=== PATIENT | female | born 1950 | race Caucasian/White ===

== ENCOUNTER 2017-08-01 16:31 | Inpatient (IN) | payer MEDICARE, OTHER ==
[~2017-08-01] VITALS: Ht 170.2 cm; Wt 84.8 kg
[2017-08-01 17:52] LABS: BASO % 1 % (0-3); EOS % 0 % (0-3); HEMATOCRIT 46.1 % (36.0-47.0); HEMOGLOBIN 15.5 g/dL (12.0-15.5); LYMPH # 1.5 x10^3/uL (1.0-4.8); LYMPH % 21 % (24-48); MEAN CORPUSCULAR HEMOGLOBIN 29 pg (25-35); MEAN CORPUSCULAR HGB CONC 34 g/dL (31-37); MEAN CORPUSCULAR VOLUME 87 fL (79-100); MONO # 0.7 x10^3/uL (0.0-1.1); MONO % 9 % (0-9); NEUT % 69 % (31-73); PLATELET COUNT 158 x10^3/uL (140-400); RED BLOOD COUNT 5.33 x10^6/uL (3.50-5.40); RED CELL DISTRIBUTION WIDTH 14.6 % (11.5-14.5); WHITE BLOOD COUNT 7.2 x10^3/uL (4.0-11.0)
[2017-08-01 17:58] LABS: CALCIUM 8.6 mg/dL (8.5-10.1); CREATININE 0.5 mg/dL (0.6-1.0); GFR 123.8; POTASSIUM 3.4 mmol/L (3.5-5.1)
[2017-08-01] MEDS ORDERED: IV NORMAL SALINE 1,000ML 1,000 ML IV ONE (18:00)
--- NOTE | 2017-08-01 19:16 | EKG ---
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
[2017-08-01] MEDS ORDERED: IOHEXOL 300 MG/ML 75 ML VIAL. IV ONE (19:30)
[2017-08-01] MEDS ORDERED: ENOXAPARIN ** NOTE DOSE ** SYRINGE SQ SCH (19:30)
[2017-08-01] MEDS ORDERED: AZITHROMYCIN 250 MG TABLET. PO ONE ×2 (19:30)
[2017-08-01] MEDS ORDERED: methylPREDNISolone SOD SUCC PF 125 MG/2 ML VIAL. IV ONE (19:30)
[2017-08-01 19:39] LABS: BGAS PH 7.4 (7.35-7.45)
[2017-08-01] MEDS: cefTRIAXone IV Push 1 GM VIAL. IVP SCH (20:31)
[2017-08-01] MEDS: IPRATRPIUM/ALBUTEROL 0.5/2.5MG 3 ML NEBU. NEB SCH (20:33)
--- NOTE | 2017-08-01 20:46 | RAD ---
Examination: CT angiography chest HISTORY: History of hypoxia, dyspnea COMPARISON: None available TECHNIQUE: Axial CT angiography images were performed with IV contrast. Coronal and sagittal 3-D MIP reformats performed Exposure: One or more of the following individualized dose reduction techniques were utilized for this examination: 1. Automated exposure control 2. Adjustment of the mA and/or kV according to patient size 3. Use of iterative reconstruction technique FINDINGS: The visualized thyroid gland grossly appears unremarkable. The central airways are patent. Carotid artery calcifications identified. The heart size grossly appears unremarkable. The caliber of the aorta grossly appears unremarkable. No evidence of filling defect identified in the main pulmonary arterial trunk and right and left main pulmonary arteries and the visualized lobar, segmental branches of the pulmonary arteries. Diffuse bilateral lung emphysematous changes. No evidence of pleural effusion or pneumothorax. Mild right lung base patchy airspace opacities likely atelectasis or infiltrates. The visualized liver, spleen, adrenals grossly appears unremarkable. Partially visualized minimal bilateral perinephric fat stranding. Moderate degenerative changes thoracic spine. IMPRESSION: 1. No evidence of pulmonary embolism. 2. Coronary artery calcifications. 3. Diffuse lung emphysematous changes. 4. Right lung base airspace opacities likely atelectasis or infiltrates. Electronically signed by: León Tamayo MD (08/01/2017 8:43 PM) [facility]
--- NOTE | 2017-08-01 21:10 | ED.ADGEN ---
Past History Past Medical History: COPD, GERD, Hypertension Past Surgical History: Cholecystectomy, Other Additional Smoking Information: states she hasn't been able to smoke for the past few days and is going to try to quit Alcohol Use: Rarely Drug Use: None Adult General Chief Complaint Chief Complaint ".. I ve been so short of breath... I may be got the flu or something.. I got fevers.. and just feel rotten..." HPI HPI Patient is a 67 year old female who presents with above hx and complaints of dyspnea, pharyngitis, myalgia, fever, chills, arthralgia, and fatigue. Patient does have a history of COPD. Patient reports periodic episodes of bronchitis. Patient normally follows with Janet Min for care. Pt. seen in clinic Haley Min for her dyspnea. Patient noted to have sats at 80% on room air. Patient is tachycardic and obviously dyspneic. Patient denies any travel or specific ill contacts. She denies any history of immunosuppression. Patient has never been oxygen dependent. Patient does not have home oxygen at this time. Patient reports coughing episodes to the point of almost passing out. Patient still smokes. Pt. mother this past week in [facility]. Pt. reports being under a lot of emotional distress. Review of Systems Review of Systems Constitutional: Hx. fever or chills [] Eyes: Denies change in visual acuity, redness, or eye pain [] HENT: Hx. of nasal congestion and sore throat [] Respiratory: Hx of cough and shortness of breath [] Cardiovascular: No additional information not addressed in HPI [] Tachycardia. GI: Denies abdominal pain, nausea, vomiting, bloody stools or diarrhea [] : Denies dysuria or hematuria [] Musculoskeletal: Denies back pain or joint pain [] Integument: Denies rash or skin lesions [] Neurologic: Denies headache, focal weakness or sensory changes [] Endocrine: Denies polyuria or polydipsia [] All other systems were reviewed and found to be within normal limits, except as documented in this note. Family History Family History Noncontributory Current Medications Current Medications Current Medications Medications (Trade) Dose Ordered Sig/Axel Start Time Stop Time Status Last Admin Dose Admin Sodium Chloride 1,000 ml @ 1,000 mls/hr 1X ONCE 08/01/17 18:00 08/01/17 18:59 DC 08/01/17 17:48 1,000 MLS/HR Allergies Allergies See nursing for home meds, patient has had problems with Keflex in the past Physical Exam Physical Exam Constitutional: in acute distress, non-toxic appearance. [] HENT: Normocephalic, atraumatic, bilateral external ears normal, oropharynx moist, injected pharynx no oral exudates, nose rhinorrhea Eyes: PERRLA, EOMI, conjunctiva normal, no discharge. [] Neck: Normal range of motion, no tenderness, supple, no stridor. [] Cardiovascular : tachycardia Heart rate regular rhythm, no murmur [] Lungs & Thorax: Bilateral breath sounds equal apex with scattered wheezes throughout. There are some findings of basilar crackles on auscultation [. Pt. has]retractions Abdomen: Bowel sounds normal, soft, no tenderness, no masses, no pulsatile masses. [] Old surgery scar. Skin: Warm, dry, no erythema, no rash. [] Back: No tenderness, no CVA tenderness. [] Extremities: No tenderness, no cyanosis, no clubbing, ROM intact, no edema. Arthritic changes. No findings of cording appreciated in legs Neurologic: Alert and oriented X 3, normal motor function, normal sensory function, no focal deficits noted. [] Psychologic: Affect anxious, judgement normal, mood normal. [] Current Patient Data Vital Signs Vital Signs Date Time Temp Pulse Resp B/P (MAP) Pulse Ox O2 Delivery O2 Flow Rate FiO2 08/01/17 17:51 101.0 112 24 92 Nasal Cannula 2.0 Lab Results Laboratory Tests Test 08/01/17 17:33 08/01/17 17:35 D-Dimer (Valerie) 1.17 mg/L (0.00-0.50) H MN-Kfi-P-Type Natriuretic Peptide 185 pg/mL (0-124) H White Blood Count 7.2 x10^3/uL (4.0-11.0) Red Blood Count 5.33 x10^6/uL (3.50-5.40) Hemoglobin 15.5 g/dL (12.0-15.5) Hematocrit 46.1 % (36.0-47.0) Mean Corpuscular Volume 87 fL (79-100) Mean Corpuscular Hemoglobin 29 pg (25-35) Mean Corpuscular Hemoglobin Concent 34 g/dL (31-37) Red Cell Distribution Width 14.6 % (11.5-14.5) H Platelet Count 158 x10^3/uL (140-400) Neutrophils (%) (Auto) 69 % (31-73) Lymphocytes (%) (Auto) 21 % (24-48) L Monocytes (%) (Auto) 9 % (0-9) Eosinophils (%) (Auto) 0 % (0-3) Basophils (%) (Auto) 1 % (0-3) Neutrophils # (Auto) 5.0 x10^3uL (1.8-7.7) Lymphocytes # (Auto) 1.5 x10^3/uL (1.0-4.8) Monocytes # (Auto) 0.7 x10^3/uL (0.0-1.1) Eosinophils # (Auto) 0.0 x10^3/uL (0.0-0.7) Basophils # (Auto) 0.0 x10^3/uL (0.0-0.2) Sodium Level 135 mmol/L (136-145) L Potassium Level 3.4 mmol/L (3.5-5.1) L Chloride Level 97 mmol/L (98-107) L Carbon Dioxide Level 31 mmol/L (21-32) Anion Gap 7 (6-14) Blood Urea Nitrogen 9 mg/dL (7-20) Creatinine 0.5 mg/dL (0.6-1.0) L Estimated GFR (Cockcroft-Gault) 123.8 Glucose Level 89 mg/dL (70-99) Lactic Acid Level 1.5 mmol/L (0.4-2.0) Calcium Level 8.6 mg/dL (8.5-10.1) EKG EKG My interpretation of EKG shows a sinus tachycardia rhythm[] and 120 bpm. There is some right axis deviation and strain pattern. There is some nonspecific anterior septal changes. No findings acute STEMI of contralateral changes. Radiology/Procedures Radiology/Procedures My interpretation of chest x-ray shows blunting of the closed phrenic angles. Has basilar infiltrate/atelectasis. COPD/emphysema changes. CT of chest pending at time of admission[] Course & Med Decision Making Course & Med Decision Making Pertinent Labs and Imaging studies reviewed. (See chart for details) Discussed presentation, testing and treatment plan with . Will admit for further evaluation and treatment. Pt appears to be in 44/45 . Some labs pending at 1908. [] Final Impression Final Impression 1. Respiratory Failure- Hypoxia 2. COPD/Emphysema 3. Elevated D-dimer 4. Rt. atelectasis/pneumonia[] 5. Elevated Trop. Problems: Dragon Disclaimer Dragon Disclaimer This electronic medical record was generated, in whole or in part, using a voice recognition dictation system. AME QUIJANO MD Aug 01, 2017 21:10
[2017-08-01] MEDS ORDERED: HYDROcodon/IBUPROFEN 7.5/200MG 1 TAB TABLET ONE (21:13)
[2017-08-01] MEDS ORDERED: HYDROcodon/IBUPROFEN 7.5/200MG 1 TAB TABLET PO ONE (21:15)
[2017-08-01] MEDS: ONDANSETRON PF 4 MG/2 ML VIAL. IV PRN (21:15)
[2017-08-01 22:14] VITALS: BP 122/56
[2017-08-01] MEDS ORDERED: PNEUMOCOCCAL VAX SCREEN. MC ONE (22:45)
[2017-08-01] MEDS ORDERED: LOSA25TA4 PO (23:32)
[2017-08-01] MEDS ORDERED: CETI10TA22 PO (23:32)
[2017-08-01] MEDS ORDERED: ESOM20CA PO (23:33)
[2017-08-01] MEDS ORDERED: FLUT1DIS3 IH (23:33)
[2017-08-01] MEDS ORDERED: TIOT18CA IH (23:34)
[2017-08-01] MEDS ORDERED: IBUP200T58 PO (23:35)
[2017-08-02 04:10] VITALS: BP 123/69
[2017-08-02] MEDS ORDERED: ASPIRIN 81 MG TAB.CHEW PO ONE (04:30)
[2017-08-02] MEDS: IPRATRPIUM/ALBUTEROL 0.5/2.5MG 3 ML NEBU. NEB SCH ×4 (05:31→20:47)
[2017-08-02] MEDS: ONDANSETRON PF 4 MG/2 ML VIAL. IV PRN (05:51)
[2017-08-02 06:24] VITALS: BP 146/83
[2017-08-02 06:40] LABS: BASO % 0 % (0-3); EOS % 0 % (0-3); HEMATOCRIT 46.8 % (36.0-47.0); HEMOGLOBIN 15.6 g/dL (12.0-15.5); LYMPH # 0.7 x10^3/uL (1.0-4.8); LYMPH % 14 % (24-48); MEAN CORPUSCULAR HEMOGLOBIN 29 pg (25-35); MEAN CORPUSCULAR HGB CONC 33 g/dL (31-37); MEAN CORPUSCULAR VOLUME 88 fL (79-100); MONO # 0.1 x10^3/uL (0.0-1.1); MONO % 2 % (0-9); NEUT # 4.3 x10^3uL (1.8-7.7); NEUT % 84 % (31-73); PLATELET COUNT 152 x10^3/uL (140-400); RED BLOOD COUNT 5.34 x10^6/uL (3.50-5.40); RED CELL DISTRIBUTION WIDTH 14.3 % (11.5-14.5); WHITE BLOOD COUNT 5.1 x10^3/uL (4.0-11.0)
[2017-08-02 06:45] LABS: CALCIUM 8.9 mg/dL (8.5-10.1); CREATININE 0.6 mg/dL (0.6-1.0); GFR 100.3; POTASSIUM 3.7 mmol/L (3.5-5.1)
[2017-08-02] MEDS: ASPIRIN 81 MG TAB.CHEW PO SCH (08:00)
--- NOTE | 2017-08-02 08:57 | RAD ---
EXAM: Chest 2 views. HISTORY: Shortness of breath. COMPARISON: 06/14/2018. FINDINGS: Frontal and lateral views of the chest are obtained. Hyperinflation is consistent with chronic obstructive pulmonary disease. Interstitial opacities in the bases most likely indicate atelectasis or scarring. There is a calcified granuloma in the left base. There are atherosclerotic calcifications of the aorta. There is no pneumothorax or pleural effusion. The heart is not enlarged. IMPRESSION: 1. Chronic obstructive pulmonary disease. No confluent infiltrates.
[2017-08-02] MEDS: LACTOBACILLUS RHAMNOSUS GG 1 CAPSULE. PO SCH ×2 (09:00→20:30)
[2017-08-02] MEDS ORDERED: PNEUMOC CONJ VACC 23-VALENT 0.5 ML VIAL. VAX IM ONE (09:00)
--- NOTE | 2017-08-02 11:24 | RAD ---
EXAM: Bilateral lower extremity venous Doppler. HISTORY: Hypoxia, elevated d-dimer. COMPARISON: None. FINDINGS: Grayscale and Doppler analysis of the both lower extremity deep venous systems was performed with graded compression and augmentation. The common femoral, greater saphenous, superficial femoral, popliteal and calf veins were assessed. There is no evidence of deep venous thrombosis. IMPRESSION: 1. No evidence of deep venous thrombosis.
[2017-08-02 11:33] VITALS: BP 120/57
[2017-08-02 15:50] VITALS: BP 118/65
[2017-08-02] MEDS ORDERED: ALBUTEROL SULFATE 2.5 MG/3 ML NEBU. NEB PRN (16:15)
--- NOTE | 2017-08-02 17:06 | EKG ---
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
--- NOTE | 2017-08-02 18:44 | HP ---
ADMIT DATE: 08/01/2017 HISTORY OF PRESENT ILLNESS: This is a 67-year-old female patient who came to the Emergency Room complaining of being very short of breath. She apparently saw her primary care physician, who did the influenza A and B, and Rapid Strep test was negative and when she came to the Emergency Room, she was complaining of dyspnea, pharyngitis, myalgia, fever, chills, arthralgia, and fatigue. She is known to have history of COPD and she was noted to be hypoxic with oxygen saturation of only 80%, was tachycardic and obviously dyspneic and apparently has never been oxygen dependent before. She has never required intubation, mechanical ventilation and had had cough with yellowish sputum, has also had chills and was evaluated in the Emergency Room, was found to have acute hypoxic respiratory failure. Her D-dimer was elevated also and her troponin was also slightly elevated. She has had Doppler ultrasound of both legs, which was negative for DVT. CT angio was also negative for pulmonary emboli, however, it did show that the patient has right lung base airspace opacities, likely atelectasis or infiltrate, and diffuse lung emphysematous changes and was admitted. She was treated with Rocephin and Zithromax. In the Emergency Room, she was given also one dose of steroids. PAST MEDICAL HISTORY: Significant for COPD, hypertension, gastroesophageal reflux disease. PAST SURGICAL HISTORY: Significant for left shoulder surgery, cholecystectomy, . ALLERGIES: She is allergic to CEPHALEXIN and MORPHINE. MEDICATIONS: She is currently on following medications: cetirizine 10 mg once a day, Nexium 40 mg once a day, Advair Diskus 250/50 one inhalation twice a day, losartan potassium 50 mg once a day, and Spiriva HandiHaler 1 inhalation once a day. She is also on ibuprofen 600 mg every 6 hours. FAMILY HISTORY: Noncontributory. SOCIAL HISTORY: She is , has twin daughters. She has been a smoker for almost 35-40 years, smokes sho-bau-b-half pack a day, does not drink alcohol. 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 REVIEW OF SYSTEMS: The patient denied any blurring of vision. Did have cataract in left eye. Denied any glaucoma or macular degeneration. Denied any earache, tinnitus or sensorineural deafness. Denied any nosebleeds, stuffy nose or postnasal drip. Denied any sore throat, sore tongue, toothache, hoarseness of voice or difficulty swallowing. Denied any nausea, vomiting, diarrhea or constipation. Denied any hematemesis, melena or hematochezia. Denied any dysuria, frequency or hematuria. She did complain of chills. No chest pain, but did complain of shortness of breath, cough with yellow sputum. PHYSICAL EXAMINATION: GENERAL: On arrival to the Emergency Room, she was pale, not jaundiced, cyanosis, or thyromegaly. No jugular venous distension. No lower limb edema. VITAL SIGNS: Her heart rate was 112, blood pressure was 122/56, her temperature was 101, respiratory rate 24 and oxygen saturation was 87%, has improved to 92% on 2 liters of oxygen. HEAD, EYES, EARS, NOSE AND THROAT: Normocephalic, atraumatic. NECK: Supple. HEART: Showed normal first and second sounds. No gallop, rub or murmur. CHEST: Shows central trachea, equal bilateral expansion, air entry with bilateral scattered rhonchi. There was apparently some finding by basal crackles mostly on the right side superiorly. ABDOMEN: Soft, lax, nontender. NEUROLOGIC: She is awake, alert, responding appropriately. Cranial nerves intact. She moves extremities without difficulty. Apparently, she was anxious on arrival. LABORATORY AND DIAGNOSTIC DATA: The patient has lab work in the Emergency Room, which showed that she has sodium of 135, potassium 3.4, chloride 97, bicarbonate 31, anion gap of 7, BUN 9, creatinine 0.5, estimated GFR was 124 mL per minute. Glucose was 89, calcium was 8.6. Her white cell count was 7200, hemoglobin 15.5, hematocrit 46, MCV 87 and platelet count of 158,000. Her blood gases showed a pH of 7.40, pCO2 of 43, pO2 45, bicarbonate 26. Oxygen saturation was only 80% on room air. Her D-dimer was 1.17 mg/dL. Her chest x-ray showed that the patient has chronic obstructive pulmonary disease with no confluent infiltrate and CT angio of the chest showed that the patient has no evidence of pulmonary embolism, coronary artery calcification, diffuse lung emphysematous changes, right lung base airspace opacities likely atelectasis or infiltrate. Given her elevated D-dimer, ____ bilateral lower extremity deep vein thrombosis, which showed no evidence of deep vein thrombosis. The patient was admitted with right lower lobe infiltrate, COPD exacerbation, and acute hypoxic respiratory failure. She is also known to have hypertension and gastroesophageal reflux disease. Her troponin was slightly elevated, however, her EKG showed that she was in sinus tachycardia with some right axis deviation and strain pattern. There are some nonspecific anteroseptal changes, no findings of acute consistent with ST segment elevation myocardial infarction. ASSESSMENT AND PLAN: The patient was given steroids, Zithromax and Rocephin. My plan is to continue with antibiotic. I spoke with the pharmacist who was not concerned about the possibility of the fact that she is allergic to cephalexin. There are different generations of cephalosporin according to her. We will continue with the Rocephin. Continue with Zithromax. Continue Solu-Medrol at 40 mg IV every 8 hours. Continue with DuoNeb 4 times a day and albuterol every 2 hours as needed. We will add Singulair and Pulmicort. We start further management accordingly. RACHEL LEIVA MD DR: AMELIE/zulay JOB#: [id number] / [id number]
[2017-08-02 19:00] VITALS: BP 119/76
[2017-08-02] MEDS: MONTELUKAST 10 MG TABLET. PO SCH (20:30)
[2017-08-02] MEDS: cefTRIAXone IV Push 1 GM VIAL. IVP SCH (20:31)
[2017-08-02] MEDS: methylPREDNISolone SOD SUCC PF 40 MG/ML VIAL. IV SCH (20:42)
[2017-08-02] MEDS: IBUPROFEN 600 MG TABLET. PO PRN (20:43)
[2017-08-02] MEDS: BUDESONIDE 0.5 MG/2 ML NEBU NEB SCH (20:47)
[2017-08-02] MEDS ORDERED: MEROPENEM 1 GM in IV NORMAL SALINE 100ML 100 ML IV SCH (22:00)
[2017-08-02 22:22] VITALS: BP 108/58
[2017-08-03] MEDS: methylPREDNISolone SOD SUCC PF 40 MG/ML VIAL. IV SCH ×2 (05:32→14:10)
[2017-08-03 05:55] VITALS: BP 147/83
[2017-08-03] MEDS: IPRATRPIUM/ALBUTEROL 0.5/2.5MG 3 ML NEBU. NEB SCH ×4 (07:26→21:06)
[2017-08-03] MEDS: BUDESONIDE 0.5 MG/2 ML NEBU NEB SCH ×2 (07:27→21:06)
[2017-08-03 07:39] LABS: BASO % 0 % (0-3); EOS % 0 % (0-3); HEMATOCRIT 44.5 % (36.0-47.0); HEMOGLOBIN 14.9 g/dL (12.0-15.5); LYMPH # 1.1 x10^3/uL (1.0-4.8); LYMPH % 15 % (24-48); MEAN CORPUSCULAR HEMOGLOBIN 29 pg (25-35); MEAN CORPUSCULAR HGB CONC 34 g/dL (31-37); MEAN CORPUSCULAR VOLUME 87 fL (79-100); MONO # 0.2 x10^3/uL (0.0-1.1); MONO % 3 % (0-9); NEUT # 5.9 x10^3uL (1.8-7.7); NEUT % 81 % (31-73); PLATELET COUNT 148 x10^3/uL (140-400); RED BLOOD COUNT 5.09 x10^6/uL (3.50-5.40); RED CELL DISTRIBUTION WIDTH 14.1 % (11.5-14.5); WHITE BLOOD COUNT 7.3 x10^3/uL (4.0-11.0)
[2017-08-03 07:51] LABS: ALBUMIN 2.9 g/dL (3.4-5.0); ALBUMIN/GLOBULIN RATIO 0.8 (1.0-1.7); CALCIUM 8.6 mg/dL (8.5-10.1); CREATININE 0.5 mg/dL (0.6-1.0); GFR 123.8; POTASSIUM 3.9 mmol/L (3.5-5.1); TOTAL BILIRUBIN 0.3 mg/dL (0.2-1.0); TOTAL PROTEIN 6.5 g/dL (6.4-8.2)
[2017-08-03] MEDS: LACTOBACILLUS RHAMNOSUS GG 1 CAPSULE. PO SCH ×2 (08:44→19:53)
[2017-08-03] MEDS: AZITHROMYCIN 250 MG TABLET. PO SCH (08:45)
[2017-08-03] MEDS: ASPIRIN 81 MG TAB.CHEW PO SCH (08:45)
[2017-08-03] MEDS: ENOXAPARIN 40 MG/0.4 ML DISP.SYRIN. SQ SCH (08:48)
--- NOTE | 2017-08-03 10:39 | PN ---
DATE: 08/02/2017 SUBJECTIVE: The patient is resting slightly propped up in bed, in no apparent distress. She was pale, but no jaundice, cyanosis, or thyromegaly. No jugular venous distention. No lower limb edema. VITAL SIGNS: Her heart rate is 113, blood pressure is 118/65, temperature was 98.3, respiratory rate was 20, and oxygen saturation was 95% on 2 liters of oxygen. HEAD, EYES, EARS, NOSE AND THROAT: Showed normocephalic, atraumatic. NECK: Supple. HEART: Showed normal first and second heart sounds with no gallop, rub or murmur. CHEST: Shows central trachea, equal expansion due to increased response with the bilateral diffuse rhonchi, few crepitation bilaterally posteriorly. ABDOMEN: Distended, soft, nontender. NEUROLOGIC: She is awake, alert, responding appropriately. Her cranial nerves are intact. She moves extremities without difficulty. Her intake over the last 24 hours was 1420, no output was recorded. LABORATORY DATA: Her lab work this morning showed that her serum sodium was 136, potassium 3.7, chloride 98, bicarbonate 30, anion gap of 8, BUN 13, creatinine 0.6, estimated GFR was 100. Her glucose 140, calcium was 8.9. She had 3 sets of cardiac enzymes showed the troponin was 0.396. ASSESSMENT: This is a 67-year-old female patient who was admitted with a right lower lobe infiltrate, chronic obstructive pulmonary disease exacerbation, acute hypoxic respiratory failure. She is also known to have hypertension, gastroesophageal reflux disease. PLAN: To continue with IV antibiotic. Continue with steroids. I added Singulair and Pulmicort and we will evaluate her on a daily basis and decide accordingly. RACHEL LEIVA MD DR: AMELIE/zulay JOB#: [id number] / [id number]
[2017-08-03] MEDS: PANTOPRAZOLE 40 MG TABLET. PO SCH (11:01)
--- NOTE | 2017-08-03 11:03 | PDOC2 ---
CONSULT Date of Admission DATE: 08/01/2017 Reason for Consult: Elevated troponin Referring Physician: Dr. Bautista Chief Complaint Shortness of breath Source: Patient Problem List Problems Medical Problems: (1) Respiratory failure with hypoxia Status: Acute History of Present Illness The patient is a 67-year-old female who came to the emergency room for significantly increasing shortness of breath with a cough. The patient has a history of COPD and continues to smoke. She was severely short of breath on admission and has been treated with pulmonary medications and antibiotics and has improved. Workup has included a chest x-ray that showed COPD but no acute changes. CT scan of the chest showed no pulmonary emboli but did show emphysema of the lungs and calcification of the coronary vessels. Lower extremity ultrasound showed no DVTs. We have asked see the patient secondary to a mildly elevated troponin at 0.322 which has declined on 2 subsequent tests. Her EKG shows a sinus rhythm with nonspecific ST-T wave changes and a possible septal Q- wave. The patient is feeling better today. She denies any history of coronary artery disease, congestive heart failure or cardiac arrhythmias. Cardiovascular: HTN Pulmonary: COPD GI: GERD Past Surgical History: Cholecystectomy Family History: Hypertension Smoke: <1 pack per day Current Medications Current Medications Sodium Chloride 1,000 ml @ 1,000 mls/hr 1X ONCE IV Last administered on at 17:48; Start 08/01/17 at 18:00; Stop 08/01/17 at 18:59; Status DC Ceftriaxone Sodium 1 gm/ Sodium Chloride 50 ml @ 100 mls/hr 1X ONCE IV Last administered on 08/01/17at 19:15; Start 08/01/17 at 19:15; Stop 08/01/17 at 19:23 ; Status DC Azithromycin (Zithromax) 500 mg 1X ONCE PO Last administered on 08/01/17at 20: 32; Start 08/01/17 at 19:30; Stop 08/01/17 at 19:31; Status DC Methylprednisolone Sodium Succinate (SOLU-Medrol 125MG VIAL) 125 mg 1X ONCE IV Last administered on 08/01/17at 20:33; Start 08/01/17 at 19:30; Stop 08/01/17 at 19:31; Status DC Iohexol (Omnipaque 300 Mg/ml) 75 ml 1X ONCE IV Last administered on 08/01/17at 20:08; Start 08/01/17 at 19:30; Stop 08/01/17 at 19:31; Status DC Ceftriaxone Sodium (Rocephin) 1 gm Q24H IVP Last administered on 08/02/17at 20: 31; Start 08/01/17 at 19:30 Ondansetron HCl (Zofran) 4 mg PRN Q4HRS PRN IV NAUSEA/VOMITING Last administered on 08/02/17at 05:51; Start 08/01/17 at 19:30; Stop 08/02/17 at 19:29 ; Status DC Albuterol/ Ipratropium (Duoneb) 3 ml RTQID NEB Last administered on 08/02/17at 20:47; Start 08/01/17 at 20:00; Stop 08/02/17 at 19:59; Status DC Enoxaparin Sodium (Lovenox 100mg Syringe) 90 mg STAT SQ Last administered on at 20:31; Start 08/01/17 at 19:30; Stop 08/02/17 at 16:12; Status DC Ceftriaxone Sodium 1 gm/ Sodium Chloride 50 ml @ 100 mls/hr DAILY IV ; Start at 09:00; Stop 08/02/17 at 09:00; Status DC Azithromycin (Zithromax) 250 mg 1X ONCE PO ; Start 08/01/17 at 19:30; Stop at 19:36; Status DC Hydrocodone Bitartrate/ Ibuprofen (Vicoprofen 7.5-200) 2 tab 1X ONCE PO Last administered on 08/01/17at 21:15; Start 08/01/17 at 21:15; Stop 08/02/17 at 16:12 ; Status DC Hydrocodone Bitartrate/ Ibuprofen (Vicoprofen 7.5-200) 1 tab STK-MED ONCE .ROUTE ; Start 08/01/17 at 21:13; Stop 08/02/17 at 16:12; Status DC Pneumococcal Polyvalent Vaccine (Do NOT chart on this entry -- for MONITORING) 1 each 1X ONCE MC ; Start 08/01/17 at 22:45; Stop 08/01/17 at 22:46; Status UNV Pneumococcal Polyvalent Vaccine (Pneumovax 23) 0.5 ml ONCE ONCE VAX IM ; Start 08/02/17 at 09:00; Stop 08/02/17 at 09:01; Status DC Aspirin (Children'S Aspirin) 81 mg DAILYWBKFT PO Last administered on at 08:45; Start 08/02/17 at 08:00 Aspirin (Children'S Aspirin) 324 mg 1X ONCE PO Last administered on 08/02/17at 05:06; Start 08/02/17 at 04:30; Stop 08/02/17 at 04:31; Status DC Lactobacillus Rhamnosus (Culturelle) 1 cap BID PO Last administered on at 08:44; Start 08/02/17 at 09:00 Methylprednisolone Sodium Succinate (SOLU-Medrol 40MG VIAL) 40 mg Q8HRS IV Last administered on 08/03/17at 05:32; Start 08/02/17 at 22:00 Azithromycin (Zithromax) 500 mg DAILY PO Last administered on 08/03/17at 08:45; Start 08/03/17 at 09:00 Meropenem 1 gm/ Sodium Chloride 100 ml @ 200 mls/hr Q8HRS IV ; Start 08/02/17 at 22:00; Stop 08/02/17 at 22:00; Status DC Enoxaparin Sodium (Lovenox) 40 mg DAILY SQ Last administered on 08/03/17at 08:48 ; Start 08/03/17 at 09:00 Albuterol Sulfate (Ventolin) 2.5 mg PRN Q2HR PRN NEB SHORTNESS OF BREATH; Start 08/02/17 at 16:15 Montelukast Sodium (Singulair) 10 mg QHS PO Last administered on 08/02/17at 20: 30; Start 08/02/17 at 21:00 Budesonide (Pulmicort) 0.5 mg RTBID NEB Last administered on 08/03/17 07:27; Start 08/02/17 at 20:00 Ibuprofen (Motrin) 600 mg PRN Q6HRS PRN PO INFLAMMATION Last administered on at 20:43; Start 08/02/17 at 20:30 Albuterol/ Ipratropium (Duoneb) 3 ml RTQID NEB Last administered on 08/03/17at 07:26; Start 08/03/17 at 08:00 Pantoprazole Sodium (Protonix) 40 mg DAILY PO ; Start 08/03/17 at 09:00 Active Scripts Active Reported Advil (Ibuprofen) 200 Mg Tablet 600 Mg PO PRN Q6HRS PRN Spiriva (Tiotropium [place]) 18 Mcg Cap.w.dev 1 Cap IH DAILY Advair 250-50 Diskus (Fluticasone/Salmeterol) 1 Each Disk.w.dev 1 Puff IH BID PRN Nexium Capsule (Esomeprazole Magnesium) 20 Mg Capsule.dr 1 Cap PO DAILY Zyrtec (Cetirizine Hcl) 10 Mg Tablet 1 Tab PO DAILY Losartan Potassium 25 Mg Tablet 50 Mg PO DAILY Allergies: Coded Allergies: cephalexin (Verified Allergy, Unknown, 08/01/17) General: YES: Fatigue Respiratory: YES: Cough, Shortness of breath, SOB with excertion General: mild distress HEENT: Atraumatic Lungs: Other (decreased breath sounds) Heart: Other (rate of 92 with a 1/6 systolic murmur) Abdomen: Normal bowel sounds VITALS Vital Signs Date Time Temp Pulse Resp B/P (MAP) Pulse Ox O2 Delivery O2 Flow Rate FiO2 08/03/17 08:00 Nasal Cannula 3.0 08/03/17 07:28 94 08/03/17 05:55 97.6 20 147/83 (104) 08/02/17 22:22 74 Labs Laboratory Tests Test 08/01/17 17:33 08/01/17 17:35 08/01/17 19:25 08/02/17 00:25 D-Dimer (Valerie) 1.17 mg/L (0.00-0.50) BY-Sec-T-Type Natriuretic Peptide 185 pg/mL (0-124) White Blood Count 7.2 x10^3/uL (4.0-11.0) Red Blood Count 5.33 x10^6/uL (3.50-5.40) Hemoglobin 15.5 g/dL (12.0-15.5) Hematocrit 46.1 % (36.0-47.0) Mean Corpuscular Volume 87 fL (79-100) Mean Corpuscular Hemoglobin 29 pg (25-35) Mean Corpuscular Hemoglobin Concent 34 g/dL (31-37) Red Cell Distribution Width 14.6 % (11.5-14.5) Platelet Count 158 x10^3/uL (140-400) Neutrophils (%) (Auto) 69 % (31-73) Lymphocytes (%) (Auto) 21 % (24-48) Monocytes (%) (Auto) 9 % (0-9) Eosinophils (%) (Auto) 0 % (0-3) Basophils (%) (Auto) 1 % (0-3) Neutrophils # (Auto) 5.0 x10^3uL (1.8-7.7) Lymphocytes # (Auto) 1.5 x10^3/uL (1.0-4.8) Monocytes # (Auto) 0.7 x10^3/uL (0.0-1.1) Eosinophils # (Auto) 0.0 x10^3/uL (0.0-0.7) Basophils # (Auto) 0.0 x10^3/uL (0.0-0.2) Sodium Level 135 mmol/L (136-145) Potassium Level 3.4 mmol/L (3.5-5.1) Chloride Level 97 mmol/L (98-107) Carbon Dioxide Level 31 mmol/L (21-32) Anion Gap 7 (6-14) Blood Urea Nitrogen 9 mg/dL (7-20) Creatinine 0.5 mg/dL (0.6-1.0) Estimated GFR (Cockcroft-Gault) 123.8 Glucose Level 89 mg/dL (70-99) Lactic Acid Level 1.5 mmol/L (0.4-2.0) Calcium Level 8.6 mg/dL (8.5-10.1) Blood Gas pH 7.40 (7.35-7.45) Blood Gas PCO2 43 mmHg (35-45) Blood Gas PO2 45 mmHg (80-100) Blood Gas HCO3 26 mmol/L (22-26) Arterial Bld O2 Saturation (Calc) 80 % (92-99) FiO2 21 % Troponin I Quantitative 0.396 ng/mL (0-0.055) Test 08/02/17 01:00 08/02/17 06:18 08/03/17 06:46 Troponin I Quantitative 0.322 ng/mL (0-0.055) 0.221 ng/mL (0-0.055) 0.064 ng/mL (0-0.055) White Blood Count 5.1 x10^3/uL (4.0-11.0) 7.3 x10^3/uL (4.0-11.0) Red Blood Count 5.34 x10^6/uL (3.50-5.40) 5.09 x10^6/uL (3.50-5.40) Hemoglobin 15.6 g/dL (12.0-15.5) 14.9 g/dL (12.0-15.5) Hematocrit 46.8 % (36.0-47.0) 44.5 % (36.0-47.0) Mean Corpuscular Volume 88 fL (79-100) 87 fL (79-100) Mean Corpuscular Hemoglobin 29 pg (25-35) 29 pg (25-35) Mean Corpuscular Hemoglobin Concent 33 g/dL (31-37) 34 g/dL (31-37) Red Cell Distribution Width 14.3 % (11.5-14.5) 14.1 % (11.5-14.5) Platelet Count 152 x10^3/uL (140-400) 148 x10^3/uL (140-400) Neutrophils (%) (Auto) 84 % (31-73) 81 % (31-73) Lymphocytes (%) (Auto) 14 % (24-48) 15 % (24-48) Monocytes (%) (Auto) 2 % (0-9) 3 % (0-9) Eosinophils (%) (Auto) 0 % (0-3) 0 % (0-3) Basophils (%) (Auto) 0 % (0-3) 0 % (0-3) Neutrophils # (Auto) 4.3 x10^3uL (1.8-7.7) 5.9 x10^3uL (1.8-7.7) Lymphocytes # (Auto) 0.7 x10^3/uL (1.0-4.8) 1.1 x10^3/uL (1.0-4.8) Monocytes # (Auto) 0.1 x10^3/uL (0.0-1.1) 0.2 x10^3/uL (0.0-1.1) Eosinophils # (Auto) 0.0 x10^3/uL (0.0-0.7) 0.0 x10^3/uL (0.0-0.7) Basophils # (Auto) 0.0 x10^3/uL (0.0-0.2) 0.0 x10^3/uL (0.0-0.2) Sodium Level 136 mmol/L (136-145) 138 mmol/L (136-145) Potassium Level 3.7 mmol/L (3.5-5.1) 3.9 mmol/L (3.5-5.1) Chloride Level 98 mmol/L (98-107) 99 mmol/L (98-107) Carbon Dioxide Level 30 mmol/L (21-32) 35 mmol/L (21-32) Anion Gap 8 (6-14) 4 (6-14) Blood Urea Nitrogen 13 mg/dL (7-20) 19 mg/dL (7-20) Creatinine 0.6 mg/dL (0.6-1.0) 0.5 mg/dL (0.6-1.0) Estimated GFR (Cockcroft-Gault) 100.3 123.8 Glucose Level 140 mg/dL (70-99) 115 mg/dL (70-99) Calcium Level 8.9 mg/dL (8.5-10.1) 8.6 mg/dL (8.5-10.1) BUN/Creatinine Ratio 38 (6-20) Total Bilirubin 0.3 mg/dL (0.2-1.0) Aspartate Amino Transf (AST/SGOT) 24 U/L (15-37) Alanine Aminotransferase (ALT/SGPT) 28 U/L (14-59) Alkaline Phosphatase 55 U/L (46-116) Total Protein 6.5 g/dL (6.4-8.2) Albumin 2.9 g/dL (3.4-5.0) Albumin/Globulin Ratio 0.8 (1.0-1.7) Images CT chest scan shows no pulmonary embolism. It does show emphysematous changes of lungs and calcification of the coronaries. Laboratory ultrasound shows no DVTs. Chest x-ray shows COPD but no acute infiltrates. Assessment/Plan 1. Acute respiratory failure secondary to exacerbation of COPD. Patient been treated with primary medications including steroids and antibiotics and is feeling significantly better. She has a long history of COPD but unfortunately continues to smoke. We'll continue present treatment. 2. Hypertension. The patient blood pressure is improving. Again will continue present treatment. 3. Mildly elevated troponin at 0.3-2 and now declining. EKG shows nonspecific ST -T wave changes with a possible septal every 8. Patient denies any history of coronary disease or congestive heart failure. Her mild elevation troponin is consistent with demand ischemia. We'll continue present medications but we'll check an echocardiogram tomorrow for LV function. The patient may also benefit from a future outpatient stress test once her acute primary problems have improved. Thank you for allowing us to participate in the care of your patient. Problems: ABNER AMOR MD Aug 03, 2017 11:03
[2017-08-03 11:24] VITALS: BP 123/55
[2017-08-03 15:03] VITALS: BP 120/66
[2017-08-03 19:00] VITALS: BP 135/83
[2017-08-03] MEDS: cefTRIAXone IV Push 1 GM VIAL. IVP SCH (19:52)
[2017-08-03] MEDS: MONTELUKAST 10 MG TABLET. PO SCH (19:53)
[2017-08-03] MEDS: IBUPROFEN 600 MG TABLET. PO PRN (19:54)
--- NOTE | 2017-08-04 00:23 | PN ---
DATE: 08/03/2017 PROGRESS NOTE SUBJECTIVE: The patient is resting, slightly propped up in bed, in no apparent distress. She is generally feeling better; however, she continued to be extremely hypoxic without oxygen, continued to have some cough, but no chest tightness or wheezing. PHYSICAL EXAMINATION: GENERAL: When I examined her, she looked somewhat pale, but no jaundice or cyanosis. No lymphadenopathy, no thyromegaly. No jugular venous distension. No lower limb edema. VITAL SIGNS: Her heart rate was 105, blood pressure 123/55, temperature was 98.2, respiratory rate 20, and oxygen saturation was 92% on 4 liters of oxygen by nasal cannula. HEAD, EYES, EARS, NOSE AND THROAT: Showed normocephalic, atraumatic. NECK: Supple. HEART: Showed normal first and second sounds. No gallop, rub, or murmur. CHEST: Clear to auscultation. No crepitation or rhonchi. She has some few crackles in the right side posteriorly. ABDOMEN: Slightly distended, soft, nontender. NEUROLOGIC: She was awake, alert, responding appropriately. Cranial nerves intact. She moves extremities without difficulty. She ambulates without assistance or assistive devices. Her intake was 1400, no output was recorded. LABORATORY DATA: Showed that her white cell count is down 7300, hemoglobin 15, hematocrit 44, MCV 87 and platelet count of 148,000. Her serum sodium, however, is 138, potassium 3.9, chloride 99, bicarbonate 35, anion gap of 4, BUN 19, creatinine 0.5, estimated GFR was 123 mL per minute. Her glucose was 115, calcium was 8.6. Total bilirubin, AST, ALT, alkaline phosphatase were normal. Total protein 6.5, albumin 2.9. She has 3 sets of cardiac enzymes, are slightly elevated, but trending down. Her blood cultures are so far negative. ASSESSMENT: A 67-year-old female patient who was admitted with: 1. Right lower lobe infiltrate. 2. Chronic obstructive pulmonary disease exacerbation. 3. Acute hypoxic respiratory failure. 4. Hypertension. 5. Gastroesophageal reflux disease. PLAN: To continue with IV antibiotic. Continue with steroids. Added Singulair and Pulmicort. She is definitely much improved than yesterday. She would probably need to go home on oxygen with a 6-minute walk tomorrow. She was evaluated by Dr. Joe and he recommended an echocardiogram to evaluate her left ventricular systolic function and also an outpatient nuclear stress test. RACHEL LEIVA MD DR: AMELIE/zulay JOB#: [id number] / [id number]
[2017-08-04] MEDS ORDERED: methylPREDNISolone SOD SUCC PF 40 MG/ML VIAL. IV SCH (02:00)
[2017-08-04 05:28] VITALS: BP 153/83
[2017-08-04] MEDS: IPRATRPIUM/ALBUTEROL 0.5/2.5MG 3 ML NEBU. NEB SCH ×2 (05:41→10:19)
[2017-08-04 07:09] LABS: CALCIUM 8.7 mg/dL (8.5-10.1); CREATININE 0.3 mg/dL (0.6-1.0); GFR 223.3; POTASSIUM 3.7 mmol/L (3.5-5.1)
[2017-08-04 07:13] LABS: HEMATOCRIT 43.2 % (36.0-47.0); HEMOGLOBIN 14.4 g/dL (12.0-15.5); RED BLOOD COUNT 5.02 x10^6/uL (3.50-5.40); WHITE BLOOD COUNT 9.3 x10^3/uL (4.0-11.0)
--- NOTE | 2017-08-04 08:47 | PDOC ---
[employer] 08/04/17 0847: PROGRESS NOTES Diagnosis Problem Problems Medical Problems: (1) Respiratory failure with hypoxia Status: Acute Assessment Problems Medical Problems: (1) Respiratory failure with hypoxia Status: Acute 1. Elevated troponin - likely demand related. Angina free. Await echo. OP MPI when pulmonary status stabilizes. . 2. Respiratory failure /COPD exacerbation - continues to require oxygen. mgmt per PCP. 3. Hypertension - consider addition of ACEI. 4. unk lipid status - check lipids Problems: Subjective remains short of breath, no chest pain or palpitations. Objective Vital Signs Date Time Temp Pulse Resp B/P (MAP) Pulse Ox O2 Delivery O2 Flow Rate FiO2 08/04/17 08:00 Nasal Cannula 3.0 08/04/17 05:40 95 08/04/17 05:28 97.1 20 153/83 (106) 08/03/17 19:00 106 Intake and Output 08/04/17 06:59 Intake Total 980 ml Balance 980 ml Intake Oral 980 ml Abdomen: Normal bowel sounds, Soft, No tenderness Heart: Regular rate, Normal S1, Normal S2 Extremities: No cyanosis, Normal pulses General: Alert, Oriented X3, Cooperative, No acute distress Lungs: Other (decreased with exp wheezing) Neuro: Normal speech, Strength at 5/5 X4 ext Psych/Mental Status: Mental status NL, Mood NL Review of Relevant I have reviewed the following items belkys (where applicable) has been applied. Labs Laboratory Tests Test 08/03/17 06:46 08/04/17 06:03 White Blood Count 7.3 x10^3/uL (4.0-11.0) 9.3 x10^3/uL (4.0-11.0) Red Blood Count 5.09 x10^6/uL (3.50-5.40) 5.02 x10^6/uL (3.50-5.40) Hemoglobin 14.9 g/dL (12.0-15.5) 14.4 g/dL (12.0-15.5) Hematocrit 44.5 % (36.0-47.0) 43.2 % (36.0-47.0) Mean Corpuscular Volume 87 fL (79-100) 86 fL (79-100) Mean Corpuscular Hemoglobin 29 pg (25-35) 29 pg (25-35) Mean Corpuscular Hemoglobin Concent 34 g/dL (31-37) 33 g/dL (31-37) Red Cell Distribution Width 14.1 % (11.5-14.5) 14.0 % (11.5-14.5) Platelet Count 148 x10^3/uL (140-400) 154 x10^3/uL (140-400) Neutrophils (%) (Auto) 81 % (31-73) Lymphocytes (%) (Auto) 15 % (24-48) Monocytes (%) (Auto) 3 % (0-9) Eosinophils (%) (Auto) 0 % (0-3) Basophils (%) (Auto) 0 % (0-3) Neutrophils # (Auto) 5.9 x10^3uL (1.8-7.7) Lymphocytes # (Auto) 1.1 x10^3/uL (1.0-4.8) Monocytes # (Auto) 0.2 x10^3/uL (0.0-1.1) Eosinophils # (Auto) 0.0 x10^3/uL (0.0-0.7) Basophils # (Auto) 0.0 x10^3/uL (0.0-0.2) Sodium Level 138 mmol/L (136-145) 138 mmol/L (136-145) Potassium Level 3.9 mmol/L (3.5-5.1) 3.7 mmol/L (3.5-5.1) Chloride Level 99 mmol/L (98-107) 100 mmol/L (98-107) Carbon Dioxide Level 35 mmol/L (21-32) 33 mmol/L (21-32) Anion Gap 4 (6-14) 5 (6-14) Blood Urea Nitrogen 19 mg/dL (7-20) 16 mg/dL (7-20) Creatinine 0.5 mg/dL (0.6-1.0) 0.3 mg/dL (0.6-1.0) Estimated GFR (Cockcroft-Gault) 123.8 223.3 BUN/Creatinine Ratio 38 (6-20) Glucose Level 115 mg/dL (70-99) 122 mg/dL (70-99) Calcium Level 8.6 mg/dL (8.5-10.1) 8.7 mg/dL (8.5-10.1) Total Bilirubin 0.3 mg/dL (0.2-1.0) Aspartate Amino Transf (AST/SGOT) 24 U/L (15-37) Alanine Aminotransferase (ALT/SGPT) 28 U/L (14-59) Alkaline Phosphatase 55 U/L (46-116) Troponin I Quantitative 0.064 ng/mL (0-0.055) Total Protein 6.5 g/dL (6.4-8.2) Albumin 2.9 g/dL (3.4-5.0) Albumin/Globulin Ratio 0.8 (1.0-1.7) Microbiology 08/01/17 Blood Culture - Preliminary, Resulted NO GROWTH AFTER 2 DAYS Medications Current Medications Sodium Chloride 1,000 ml @ 1,000 mls/hr 1X ONCE IV Last administered on at 17:48; Start 08/01/17 at 18:00; Stop 08/01/17 at 18:59; Status DC Ceftriaxone Sodium 1 gm/ Sodium Chloride 50 ml @ 100 mls/hr 1X ONCE IV Last administered on 08/01/17at 19:15; Start 08/01/17 at 19:15; Stop 08/01/17 at 19:23 ; Status DC Azithromycin (Zithromax) 500 mg 1X ONCE PO Last administered on 08/01/17at 20: 32; Start 08/01/17 at 19:30; Stop 08/01/17 at 19:31; Status DC Methylprednisolone Sodium Succinate (SOLU-Medrol 125MG VIAL) 125 mg 1X ONCE IV Last administered on 08/01/17at 20:33; Start 08/01/17 at 19:30; Stop 08/01/17 at 19:31; Status DC Iohexol (Omnipaque 300 Mg/ml) 75 ml 1X ONCE IV Last administered on 08/01/17at 20:08; Start 08/01/17 at 19:30; Stop 08/01/17 at 19:31; Status DC Ceftriaxone Sodium (Rocephin) 1 gm Q24H IVP Last administered on 08/03/17at 19: 52; Start 08/01/17 at 19:30 Ondansetron HCl (Zofran) 4 mg PRN Q4HRS PRN IV NAUSEA/VOMITING Last administered on 08/02/17at 05:51; Start 08/01/17 at 19:30; Stop 08/02/17 at 19:29 ; Status DC Albuterol/ Ipratropium (Duoneb) 3 ml RTQID NEB Last administered on 08/02/17at 20:47; Start 08/01/17 at 20:00; Stop 08/02/17 at 19:59; Status DC Enoxaparin Sodium (Lovenox 100mg Syringe) 90 mg STAT SQ Last administered on at 20:31; Start 08/01/17 at 19:30; Stop 08/02/17 at 16:12; Status DC Ceftriaxone Sodium 1 gm/ Sodium Chloride 50 ml @ 100 mls/hr DAILY IV ; Start at 09:00; Stop 08/02/17 at 09:00; Status DC Azithromycin (Zithromax) 250 mg 1X ONCE PO ; Start 08/01/17 at 19:30; Stop at 19:36; Status DC Hydrocodone Bitartrate/ Ibuprofen (Vicoprofen 7.5-200) 2 tab 1X ONCE PO Last administered on 08/01/17at 21:15; Start 08/01/17 at 21:15; Stop 08/02/17 at 16:12 ; Status DC Hydrocodone Bitartrate/ Ibuprofen (Vicoprofen 7.5-200) 1 tab STK-MED ONCE .ROUTE ; Start 08/01/17 at 21:13; Stop 08/02/17 at 16:12; Status DC Pneumococcal Polyvalent Vaccine (Do NOT chart on this entry -- for MONITORING) 1 each 1X ONCE MC ; Start 08/01/17 at 22:45; Stop 08/01/17 at 22:46; Status UNV Pneumococcal Polyvalent Vaccine (Pneumovax 23) 0.5 ml ONCE ONCE VAX IM ; Start 08/02/17 at 09:00; Stop 08/02/17 at 09:01; Status DC Aspirin (Children'S Aspirin) 81 mg DAILYWBKFT PO Last administered on at 08:45; Start 08/02/17 at 08:00 Aspirin (Children'S Aspirin) 324 mg 1X ONCE PO Last administered on 08/02/17at 05:06; Start 08/02/17 at 04:30; Stop 08/02/17 at 04:31; Status DC Lactobacillus Rhamnosus (Culturelle) 1 cap BID PO Last administered on at 19:53; Start 08/02/17 at 09:00 Methylprednisolone Sodium Succinate (SOLU-Medrol 40MG VIAL) 40 mg Q8HRS IV Last administered on 08/03/17at 14:10; Start 08/02/17 at 22:00; Stop 08/03/17 at 15:34; Status DC Azithromycin (Zithromax) 500 mg DAILY PO Last administered on 08/03/17at 08:45; Start 08/03/17 at 09:00 Meropenem 1 gm/ Sodium Chloride 100 ml @ 200 mls/hr Q8HRS IV ; Start 08/02/17 at 22:00; Stop 08/02/17 at 22:00; Status DC Enoxaparin Sodium (Lovenox) 40 mg DAILY SQ Last administered on 08/03/17at 08:48 ; Start 08/03/17 at 09:00 Albuterol Sulfate (Ventolin) 2.5 mg PRN Q2HR PRN NEB SHORTNESS OF BREATH; Start 08/02/17 at 16:15 Montelukast Sodium (Singulair) 10 mg QHS PO Last administered on 08/03/17at 19: 53; Start 08/02/17 at 21:00 Budesonide (Pulmicort) 0.5 mg RTBID NEB Last administered on 08/03/17at 21:06; Start 08/02/17 at 20:00 Ibuprofen (Motrin) 600 mg PRN Q6HRS PRN PO INFLAMMATION Last administered on at 19:54; Start 08/02/17 at 20:30 Albuterol/ Ipratropium (Duoneb) 3 ml RTQID NEB Last administered on 08/04/17at 05:41; Start 08/03/17 at 08:00 Pantoprazole Sodium (Protonix) 40 mg DAILY PO Last administered on 08/03/17at 11 :01; Start 08/03/17 at 09:00 Methylprednisolone Sodium Succinate (SOLU-Medrol 40MG VIAL) 40 mg Q12H IV Last administered on 08/04/17at 02:35; Start 08/04/17 at 02:00 Active Scripts Active Reported Advil (Ibuprofen) 200 Mg Tablet 600 Mg PO PRN Q6HRS PRN Spiriva (Tiotropium [place]) 18 Mcg Cap.w.dev 1 Cap IH DAILY Advair 250-50 Diskus (Fluticasone/Salmeterol) 1 Each Disk.w.dev 1 Puff IH BID PRN Nexium Capsule (Esomeprazole Magnesium) 20 Mg Capsule.dr 1 Cap PO DAILY Zyrtec (Cetirizine Hcl) 10 Mg Tablet 1 Tab PO DAILY Losartan Potassium 25 Mg Tablet 50 Mg PO DAILY Vitals/I & O Vital Sign - Last 24 Hours 08/03/17 08/03/17 08/03/17 08/03/17 11:24 12:17 15:03 17:06 Temp 98.2 98.1 Pulse 105 101 Resp 20 B/P (MAP) 123/55 (77) 120/66 (84) Pulse Ox 92 95 93 95 O2 Delivery Room Air Nasal Cannula Room Air Nasal Cannula O2 Flow Rate 4.0 4.0 08/03/17 08/03/17 08/03/17 08/03/17 19:00 20:00 21:05 21:09 Temp 97.8 Pulse 106 B/P (MAP) 135/83 (100) Pulse Ox 90 84 O2 Delivery Room Air Nasal Cannula Room Air Nasal Cannula O2 Flow Rate 3.0 3.0 3.0 08/04/17 08/04/17 08/04/17 05:28 05:40 08:00 Temp 97.1 Resp 20 B/P (MAP) 153/83 (106) Pulse Ox 91 95 O2 Delivery Room Air Nasal Cannula Nasal Cannula O2 Flow Rate 3.0 3.0 3.0 Intake and Output 08/03/17 08/03/17 08/04/17 14:59 22:59 06:59 Intake Total 480 ml 500 ml Balance 480 ml 500 ml FELICIANO FRANZ MD 08/04/17 1418: PROGRESS NOTES Assessment Patient seen and examined. Agree with SOFTWARE ASSET MANAGER's assessment and plan Respiratory status improved since admission 2-D echo to rule out wall motion abnormalities pending Plan for Lexiscan nuclear stress test possibly an outpatient Problems: EVER FOSS APRN Aug 04, 2017 08:47 FELICIANO FRANZ MD Aug 04, 2017 14:18
[2017-08-04] MEDS: ASPIRIN 81 MG TAB.CHEW PO SCH (08:49)
[2017-08-04] MEDS: AZITHROMYCIN 250 MG TABLET. PO SCH (08:49)
[2017-08-04] MEDS: LACTOBACILLUS RHAMNOSUS GG 1 CAPSULE. PO SCH (08:49)
[2017-08-04] MEDS: PANTOPRAZOLE 40 MG TABLET. PO SCH (08:49)
[2017-08-04] MEDS: ENOXAPARIN 40 MG/0.4 ML DISP.SYRIN. SQ SCH ×2 (08:51→08:57)
[2017-08-04] MEDS: BUDESONIDE 0.5 MG/2 ML NEBU NEB SCH (10:19)
[2017-08-04 11:12] VITALS: BP 145/68
[2017-08-04] MEDS ORDERED: MONT10TA9 PO (11:53)
[2017-08-04] MEDS ORDERED: PRED-220 PO (11:53)
[2017-08-04] MEDS ORDERED: LACT1CAP19 PO (11:53)
[2017-08-04] MEDS ORDERED: DOXY100C14 PO (11:53)
--- NOTE | 2017-08-04 13:58 | PDOC3 ---
Discharge Summary Visit Information Date of Admission: Aug 01, 2017 Date of Discharge: Aug 04, 2017 Final Diagnosis Problems Medical Problems: (1) Respiratory failure with hypoxia Status: Acute (1) Respiratory failure with hypoxia Status: Acute 1. Elevated troponin - likely demand related. Angina free. Await echo. OP MPI when pulmonary status stabilizes. . 2. Respiratory failure /COPD exacerbation - continues to require oxygen. mgmt per PCP. 3. Hypertension - consider addition of ACEI. 4. unk lipid status - check lipids ASSESSMENT: A 67-year-old female patient who was admitted with: 1. Right lower lobe infiltrate. 2. Chronic obstructive pulmonary disease exacerbation. 3. Acute hypoxic respiratory failure. 4. Hypertension. 5. Gastroesophageal reflux disease. 6. coronary artery calcifications Problems: Problems: Brief Hospital Course Allergies Allergies Coded Allergies Type Severity Reaction Last Updated Verified cephalexin Allergy Unknown 08/01/17 Yes Vital Signs Vital Signs Date Time Temp Pulse Resp B/P (MAP) Pulse Ox O2 Delivery O2 Flow Rate FiO2 08/04/17 11:12 97.8 101 20 145/68 (93) 97 Room Air 08/04/17 10:58 3.0 Lab Results Laboratory Tests Test 08/03/17 06:46 08/04/17 06:03 White Blood Count 7.3 x10^3/uL (4.0-11.0) 9.3 x10^3/uL (4.0-11.0) Red Blood Count 5.09 x10^6/uL (3.50-5.40) 5.02 x10^6/uL (3.50-5.40) Hemoglobin 14.9 g/dL (12.0-15.5) 14.4 g/dL (12.0-15.5) Hematocrit 44.5 % (36.0-47.0) 43.2 % (36.0-47.0) Mean Corpuscular Volume 87 fL (79-100) 86 fL (79-100) Mean Corpuscular Hemoglobin 29 pg (25-35) 29 pg (25-35) Mean Corpuscular Hemoglobin Concent 34 g/dL (31-37) 33 g/dL (31-37) Red Cell Distribution Width 14.1 % (11.5-14.5) 14.0 % (11.5-14.5) Platelet Count 148 x10^3/uL (140-400) 154 x10^3/uL (140-400) Neutrophils (%) (Auto) 81 % (31-73) Lymphocytes (%) (Auto) 15 % (24-48) Monocytes (%) (Auto) 3 % (0-9) Eosinophils (%) (Auto) 0 % (0-3) Basophils (%) (Auto) 0 % (0-3) Neutrophils # (Auto) 5.9 x10^3uL (1.8-7.7) Lymphocytes # (Auto) 1.1 x10^3/uL (1.0-4.8) Monocytes # (Auto) 0.2 x10^3/uL (0.0-1.1) Eosinophils # (Auto) 0.0 x10^3/uL (0.0-0.7) Basophils # (Auto) 0.0 x10^3/uL (0.0-0.2) Sodium Level 138 mmol/L (136-145) 138 mmol/L (136-145) Potassium Level 3.9 mmol/L (3.5-5.1) 3.7 mmol/L (3.5-5.1) Chloride Level 99 mmol/L (98-107) 100 mmol/L (98-107) Carbon Dioxide Level 35 mmol/L (21-32) 33 mmol/L (21-32) Anion Gap 4 (6-14) 5 (6-14) Blood Urea Nitrogen 19 mg/dL (7-20) 16 mg/dL (7-20) Creatinine 0.5 mg/dL (0.6-1.0) 0.3 mg/dL (0.6-1.0) Estimated GFR (Cockcroft-Gault) 123.8 223.3 BUN/Creatinine Ratio 38 (6-20) Glucose Level 115 mg/dL (70-99) 122 mg/dL (70-99) Calcium Level 8.6 mg/dL (8.5-10.1) 8.7 mg/dL (8.5-10.1) Total Bilirubin 0.3 mg/dL (0.2-1.0) Aspartate Amino Transf (AST/SGOT) 24 U/L (15-37) Alanine Aminotransferase (ALT/SGPT) 28 U/L (14-59) Alkaline Phosphatase 55 U/L (46-116) Troponin I Quantitative 0.064 ng/mL (0-0.055) Total Protein 6.5 g/dL (6.4-8.2) Albumin 2.9 g/dL (3.4-5.0) Albumin/Globulin Ratio 0.8 (1.0-1.7) Brief Hospital Course Ms. Lee is a 67 old [sex] who presented with [ ] HISTORY OF PRESENT ILLNESS: This is a 67-year-old female patient who came to the Emergency Room complaining of being very short of breath. She apparently saw her primary care physician, who did the influenza A and B, and Rapid Strep test was negative and when she came to the Emergency Room, she was complaining of dyspnea, pharyngitis, myalgia, fever, chills, arthralgia, and fatigue. She is known to have history of COPD and she was noted to be hypoxic with oxygen saturation of only 80%, was tachycardic and obviously dyspneic and apparently has never been oxygen dependent before. She has never required intubation, mechanical ventilation and had had cough with yellowish sputum, has also had chills and was evaluated in the Emergency Room, was found to have acute hypoxic respiratory failure. Her D-dimer was elevated also and her troponin was also slightly elevated. She has had Doppler ultrasound of both legs, which was negative for DVT. CT angio was also negative for pulmonary emboli, however, it did show that the patient has right lung base airspace opacities, likely atelectasis or infiltrate, and diffuse lung emphysematous changes and was admitted. She was treated with Rocephin and Zithromax. In the Emergency Room, she was given also one dose of steroids. She was admited and treated with iv steroids, oxygen and antibiotics as well as breathing treatments. She was counseled about her smoking and the need to quit. She was still was requiring oxygen and will be sent home on oxygen and breathing treatments as well as a prednisone taper and po antibiotics. She was seen by cardiology and a stress test is recommended as an outpatient. Discharge Information Condition at Discharge: Stable Follow Up: Weeks Disposition/Orders: D/C to Home Dischare Medications Current Medications Sodium Chloride 1,000 ml @ 1,000 mls/hr 1X ONCE IV Last administered on at 17:48; Start 08/01/17 at 18:00; Stop 08/01/17 at 18:59; Status DC Ceftriaxone Sodium 1 gm/ Sodium Chloride 50 ml @ 100 mls/hr 1X ONCE IV Last administered on 08/01/17at 19:15; Start 08/01/17 at 19:15; Stop 08/01/17 at 19:23 ; Status DC Azithromycin (Zithromax) 500 mg 1X ONCE PO Last administered on 08/01/17at 20: 32; Start 08/01/17 at 19:30; Stop 08/01/17 at 19:31; Status DC Methylprednisolone Sodium Succinate (SOLU-Medrol 125MG VIAL) 125 mg 1X ONCE IV Last administered on 08/01/17at 20:33; Start 08/01/17 at 19:30; Stop 08/01/17 at 19:31; Status DC Iohexol (Omnipaque 300 Mg/ml) 75 ml 1X ONCE IV Last administered on 08/01/17at 20:08; Start 08/01/17 at 19:30; Stop 08/01/17 at 19:31; Status DC Ceftriaxone Sodium (Rocephin) 1 gm Q24H IVP Last administered on 08/03/17at 19: 52; Start 08/01/17 at 19:30 Ondansetron HCl (Zofran) 4 mg PRN Q4HRS PRN IV NAUSEA/VOMITING Last administered on 08/02/17at 05:51; Start 08/01/17 at 19:30; Stop 08/02/17 at 19:29 ; Status DC Albuterol/ Ipratropium (Duoneb) 3 ml RTQID NEB Last administered on 08/02/17at 20:47; Start 08/01/17 at 20:00; Stop 08/02/17 at 19:59; Status DC Enoxaparin Sodium (Lovenox 100mg Syringe) 90 mg STAT SQ Last administered on at 20:31; Start 08/01/17 at 19:30; Stop 08/02/17 at 16:12; Status DC Ceftriaxone Sodium 1 gm/ Sodium Chloride 50 ml @ 100 mls/hr DAILY IV ; Start at 09:00; Stop 08/02/17 at 09:00; Status DC Azithromycin (Zithromax) 250 mg 1X ONCE PO ; Start 08/01/17 at 19:30; Stop at 19:36; Status DC Hydrocodone Bitartrate/ Ibuprofen (Vicoprofen 7.5-200) 2 tab 1X ONCE PO Last administered on 08/01/17at 21:15; Start 08/01/17 at 21:15; Stop 08/02/17 at 16:12 ; Status DC Hydrocodone Bitartrate/ Ibuprofen (Vicoprofen 7.5-200) 1 tab STK-MED ONCE .ROUTE ; Start 08/01/17 at 21:13; Stop 08/02/17 at 16:12; Status DC Pneumococcal Polyvalent Vaccine (Do NOT chart on this entry -- for MONITORING) 1 each 1X ONCE MC ; Start 08/01/17 at 22:45; Stop 08/01/17 at 22:46; Status UNV Pneumococcal Polyvalent Vaccine (Pneumovax 23) 0.5 ml ONCE ONCE VAX IM Last administered on 08/04/17at 08:52; Start 08/02/17 at 09:00; Stop 08/02/17 at 09:01 ; Status DC Aspirin (Children'S Aspirin) 81 mg DAILYWBKFT PO Last administered on at 08:49; Start 08/02/17 at 08:00 Aspirin (Children'S Aspirin) 324 mg 1X ONCE PO Last administered on 08/02/17at 05:06; Start 08/02/17 at 04:30; Stop 08/02/17 at 04:31; Status DC Lactobacillus Rhamnosus (Culturelle) 1 cap BID PO Last administered on at 08:49; Start 08/02/17 at 09:00 Methylprednisolone Sodium Succinate (SOLU-Medrol 40MG VIAL) 40 mg Q8HRS IV Last administered on 08/03/17at 14:10; Start 08/02/17 at 22:00; Stop 08/03/17 at 15:34; Status DC Azithromycin (Zithromax) 500 mg DAILY PO Last administered on 08/04/17at 08:49; Start 08/03/17 at 09:00 Meropenem 1 gm/ Sodium Chloride 100 ml @ 200 mls/hr Q8HRS IV ; Start 08/02/17 at 22:00; Stop 08/02/17 at 22:00; Status DC Enoxaparin Sodium (Lovenox) 40 mg DAILY SQ Last administered on 08/03/17at 08:48 ; Start 08/03/17 at 09:00 Albuterol Sulfate (Ventolin) 2.5 mg PRN Q2HR PRN NEB SHORTNESS OF BREATH; Start 08/02/17 at 16:15 Montelukast Sodium (Singulair) 10 mg QHS PO Last administered on 08/03/17at 19: 53; Start 08/02/17 at 21:00 Budesonide (Pulmicort) 0.5 mg RTBID NEB Last administered on 08/04/17at 10:19; Start 08/02/17 at 20:00 Ibuprofen (Motrin) 600 mg PRN Q6HRS PRN PO INFLAMMATION Last administered on at 19:54; Start 08/02/17 at 20:30 Albuterol/ Ipratropium (Duoneb) 3 ml RTQID NEB Last administered on 08/04/17at 10:19; Start 08/03/17 at 08:00 Pantoprazole Sodium (Protonix) 40 mg DAILY PO Last administered on 08/04/17at 08 :49; Start 08/03/17 at 09:00 Methylprednisolone Sodium Succinate (SOLU-Medrol 40MG VIAL) 40 mg Q12H IV Last administered on 08/04/17at 02:35; Start 08/04/17 at 02:00 Active Scripts Active Prednisone 10 Mg Tablet 10 Mg PO DAILY 8 Days 40MGX2, 30MGX2, 20MGX2, 10MGX2 THEN STOP Montelukast Sodium Tablet (Montelukast Sodium) 10 Mg Tablet 10 Mg PO QHS 60 Days Culturelle (Lactobacillus Rhamnosus Gg) 1 Each Cap.sprink 1 Cap PO BID 30 Days Doxycycline Monohydrate 100 Mg Capsule 1 Cap PO BID Reported Advil (Ibuprofen) 200 Mg Tablet 600 Mg PO PRN Q6HRS PRN LAST DOSE GIVEN: DATE: NOT GIVEN IN THE HOSPITAL NEXT DOSE DUE: DATE: RESTART TODAY TIME: IF AND WHEN NEEDED Spiriva (Tiotropium [place]) 18 Mcg Cap.w.dev 1 Cap IH DAILY LAST DOSE GIVEN: DATE: NOT GIVEN IN THE HOSPITAL NEXT DOSE DUE: DATE: RESTART TODAY TIME: WHEN YOU GET HOME Advair 250-50 Diskus (Fluticasone/Salmeterol) 1 Each Disk.w.dev 1 Puff IH BID PRN LAST DOSE GIVEN: DATE: NOT GIVEN IN THE HOSPITAL NEXT DOSE DUE: DATE: RESTART TODAY TIME: PM Nexium Capsule (Esomeprazole Magnesium) 20 Mg Capsule. 1 Cap PO DAILY YOU TOOK PROTONIX IN THE HOSPITAL LAST DOSE GIVEN: DATE: TODAY TIME:AM NEXT DOSE DUE: DATE: TOMORROW TIME: AM Zyrtec (Cetirizine Hcl) 10 Mg Tablet 1 Tab PO DAILY LAST DOSE GIVEN: DATE: TODAY TIME: AM NEXT DOSE DUE: DATE: TOMORROW TIME: AM Losartan Potassium 25 Mg Tablet 50 Mg PO DAILY NEXT DOSE DUE: DATE: RESTART TOMORROW TIME: AM Patient Instructions Patient Instuctions dc home on oxygen and breathing treatments and prednisone.see pcp within a week. FABIEN MAYA DO Aug 04, 2017 13:58
--- NOTE | 2017-08-04 16:09 | CARD ---
MR#: [id number] Date of Study: 08/04/2017 Ordering Physician: ABNER AMOR, Referring Physician: RACHEL LEIVA Tech: Janny Weinstein RDCS APPROVED REPORT EXAM: Two-dimensional and M-mode echocardiogram with Doppler and color Doppler. Other Information Quality : Good INDICATION Abnormal ECG Dyspnea 2D DIMENSIONS RVDd2.3 (2.9-3.5cm)Left Atrium(2D)3.0 (1.6-4.0cm) IVSd1.0 (0.7-1.1cm)Aortic Root(2D)2.4 (2.0-3.7cm) LVDd4.8 (3.9-5.9cm)LVOT Diameter2.0 (1.8-2.4cm) PWd1.0 (0.7-1.1cm)LVDs3.4 (2.5-4.0cm) FS (%) 29.5 %SV59.7 ml LVEF(%)56.4 (>50%) Aortic Valve AoV Peak Donaldo.146.9cm/sAoV VTI22.1cm AO Peak GR.8.6mmHgLVOT Peak Donaldo.119.7cm/s LVOT VTI 22.30cmAO Mean GR.4mmHg BILLY (VMAX)2.51zg2WHW (VTI)3.06cm2 Mitral Valve MV E Dxheatsq62.3cm/sMV DECEL [id number] MV A Wvexvbmv86.0cm/sE/A Ratio0.7 Tricuspid Valve TR P. Ujmejuuk497pn/sRAP [id number] TR Peak Gr.83ywPbKSVB77fzKq Pulmonary Vein S1 Nxecjdcv67.4cm/sD2 Pbzjosqk48.6cm/s LEFT VENTRICLE The left ventricle is normal size. There is normal left ventricular wall thickness. The left ventricu lar systolic function is normal. The Ejection Fraction is 55-60%. There is normal LV segmental wall m otion. Transmitral Doppler flow pattern is Grade I-abnormal relaxation pattern. RIGHT VENTRICLE The right ventricle is normal size. The right ventricular systolic function is normal. ATRIA The left atrium size is normal. The right atrium size is normal. The interatrial septum is intact wit h no evidence for an atrial septal defect or patent foramen ovale as noted on 2-D or Doppler imaging. AORTIC VALVE The aortic valve is not well visualized but appears to function normally by Doppler interrogation. Do ppler and Color Flow revealed no significant aortic regurgitation. There is no significant aortic palak vular stenosis. MITRAL VALVE The mitral valve is calcified but opens well. There is no evidence of mitral valve prolapse. There is no mitral valve stenosis. Doppler and Color-flow revealed trace to mild mitral regurgitation. TRICUSPID VALVE The tricuspid valve is normal in structure and function. Doppler and Color Flow revealed mild tricusp id regurgitation. There is moderate pulmonary hypertension. The PA pressure was estimated at 49 mmHg. There is no tricuspid valve stenosis. PULMONIC VALVE The pulmonic valve is not well visualized but appears to function normally by Doppler interrogation. Doppler and Color Flow revealed no pulmonic valvular regurgitation. There is no pulmonic valvular mabel nosis. GREAT VESSELS The aortic root is normal in size. The ascending aorta is not well seen. The IVC is dilated. PERICARDIAL EFFUSION There is no evidence of significant pericardial effusion. Critical Notification Critical Value: No <Conclusion> The left ventricular systolic function is normal. The Ejection Fraction is 55-60%. There is normal LV segmental wall motion. Transmitral Doppler flow pattern is Grade I-abnormal relaxation pattern. Trace to mild mitral regurgitation. Mild tricuspid regurgitation. There is moderate pulmonary hypertension. The PA pressure was estimated at 49 mmHg. There is no evidence of significant pericardial effusion. Signed by : Sarmad Gates, Electronically Approved : 08/04/2017 16:09:08
== END 2017-08-04 14:55 | disposition home or self-care (01) | DRG 205 ==
LOC: ER 16:31 → 1 SOUTH 19:10
PROVIDERS: ADMIT Internal Medicine; ATTEND Internal Medicine
DX: J98.11 Atelectasis (principal); J96.01 Acute respiratory failure with hypoxia; I24.8 Other forms of acute ischemic heart disease; J44.1 Chronic obstructive pulmonary disease with (acute) exacerbation; I10 Essential (primary) hypertension; K21.9 Gastro-esophageal reflux disease without esophagitis; F17.200 Nicotine dependence, unspecified, uncomplicated; I25.10 Atherosclerotic heart disease of native coronary artery without angina pectoris; Z82.49 Family history of ischemic heart disease and other diseases of the circulatory system; Z90.49 Acquired absence of other specified parts of digestive tract; Z88.8 Allergy status to other drugs, medicaments and biological substances
CPT/HCPCS: 36415; 36600; 71046; 71275; 80048; 80053; 80061; 82803; 83605; 83880; 84484; 85025; 85027; 85379; 87040; 90732; 93005; 93306; 93970; 94640; 96365; 96366; 96372; 96375; 99406; G0238; J0456; J0696; J1650; J2405; J2920; J2930; J7620; J7626; Q9967; 99285-25; J7030

== ENCOUNTER → 2017-08-22 | Outpatient (CLI) | payer MEDICARE, OTHER ==
[2017-08-04 11:12] VITALS: BP 145/68
[~2017-08-22] MED LIST: CETI10TA22 PO; DOXY100C14 PO; ESOM20CA PO; FLUT1DIS3 IH; IBUP200T58 PO; LACT1CAP19 PO; LOSA25TA4 PO; MONT10TA9 PO; PRED-220 PO; TIOT18CA IH
--- NOTE | 2017-08-22 16:15 | RAD ---
EXAM: Chest 2 views. HISTORY: Pneumonia. COMPARISON: 08/01/2017. FINDINGS: Frontal and lateral views of the chest are obtained. Hyperinflation is consistent with chronic obstructive pulmonary disease. There are mild interstitial opacities in the bases. A calcified granuloma is noted in the left lower lobe. Opacities in the right middle lobe on the lateral projection appears stable. There is no pneumothorax or pleural effusion. The heart is not enlarged. There are atherosclerotic calcifications of the aorta. There are changes of internal fixation of a left proximal humeral fracture. There is a chronic mild mid thoracic compression deformity. IMPRESSION: 1. Chronic obstructive pulmonary disease. Bibasilar scarring versus trace pulmonary edema.
== END | disposition home or self-care (01) ==
LOC: RAD 11:50
PROVIDERS: ATTEND Nurse Practitioner Family
DX: J44.0 Chronic obstructive pulmonary disease with (acute) lower respiratory infection (principal); J18.9 Pneumonia, unspecified organism; I70.0 Atherosclerosis of aorta; Z87.01 Personal history of pneumonia (recurrent)
CPT/HCPCS: 71046

== ENCOUNTER → 2017-10-07 | Outpatient (CLI) | payer MEDICARE, OTHER ==
--- NOTE | 2017-10-07 14:24 | RAD ---
Chest, 2 views, 10/07/2017: History: Cough, wheezing, shortness of breath Comparison is made to a study from 08/22/2017. The heart size is normal. There is calcific plaquing of the aorta. There is attenuation of the pulmonary vessels in the upper lobes compatible with emphysema. The lungs are hyperexpanded. A calcified granuloma is present in the left base. There are streaky right basilar opacities involving primarily the right middle lobe and anterior aspect of the right lower lobe. The right hemidiaphragm is now partially obscured. No definite pleural fluid is seen. A surgical plate and screws is present related to the proximal left humerus. IMPRESSION: 1. Emphysema with parenchymal scarring. 2. Mild streaky right basilar atelectasis and/or pneumonitis.
--- NOTE | 2017-10-07 14:26 | RAD ---
Thoracic spine, 3 views, 10/07/2017: History: Back pain There is a minimal thoracolumbar scoliosis. There are moderate scattered marginal spurs in the thoracic spine. No fracture or destructive bony lesion is evident. IMPRESSION: 1. Scattered marginal spurs. 2. No acute abnormality is detected.
== END | disposition home or self-care (01) ==
LOC: DXRAD 12:03
PROVIDERS: ATTEND Nurse Practitioner Family
DX: M41.85 Other forms of scoliosis, thoracolumbar region (principal); J43.9 Emphysema, unspecified; I10 Essential (primary) hypertension; Z87.891 Personal history of nicotine dependence
CPT/HCPCS: 71046; 72072